=== PATIENT | male | born 1950 | race Caucasian/White ===

== ENCOUNTER 2016-08-17 | Outpatient (CLI) | payer OTHER | END 2016-08-17 19:21 | disposition short-term general hospital (02) | CPT/HCPCS: A0170; A0425; A0433 ==

== ENCOUNTER 2016-11-24 10:50 | Outpatient (CLI) | payer OTHER | END 2016-11-24 10:51 | disposition home or self-care (01) | LOC: LAB.R 10:50 | PROVIDERS: ATTEND Family Medicine Addiction Medicine | DX: Z79.899 Other long term (current) drug therapy (principal) | CPT/HCPCS: 84132 ==